=== PATIENT | male | born 1980 | race Caucasian/White ===

== ENCOUNTER 2019-05-20 14:36 | Emergency (ER) | payer OTHER, SELFPAY ==
--- NOTE | ~2019-05-20 | XR_ITS ---
XR shoulder RT min 2V 05/20/2019 15:33 Indication: Right shoulder pain Procedure: 5 views right shoulder Comparison: No prior studies for comparison. Findings: No fracture or traumatic malalignment. No significant soft tissue abnormality. No radiopaqu e foreign bodies. Impression: 1: No acute bone or joint abnormality. Reviewed, dictated and finalized at location B. EE MAKER Impression: 1: No acute bone or joint abnormality.
--- NOTE | ~2019-05-20 | XR_ITS ---
XR elbow RT min 3V 05/20/2019 15:33 INDICATION: Generalized elbow and shoulder pain. Limited range of motion. PROCEDURE: 4 views right elbow COMPARISON: No prior studies for comparison. FINDINGS: Fracture, dislocation or subluxation is not identified. No significant joint effusion. The soft tissues appear within normal limits. No foreign bodies are identified. IMPRESSION: 1: NO ACUTE BONE OR JOINT ABNORMALITY IDENTIFIED. Reviewed, dictated and finalized at location B. LIFE BIOLOGIST
[2019-05-20 14:39] VITALS: BP 132/84; PULSE 69; RESP 18; TEMP 36.7; O2SAT 96
--- NOTE | 2019-05-20 15:16 | ED.UPPEXIN ---
HPI - Extremity Injury (Upper) General Chief Complaint: Extremity Injury, Upper Stated Complaint: shoulder pain Time Seen by Provider: 05/20/19 14:50 Source: patient Mode of arrival: ambulatory Limitations: no limitations History of Present Illness HPI narrative: This is a 39 year old male that presents to the ER for right shoulder pain after an injury a week and a half ago. Reports he was at work and tripped over a broom falling onto his elbow. Reports since he has had pain in the right shoulder pain elbow. Worse with movement. Relieved with rest. He has been taking Tylenol with little relief. Denies hitting his head, loss of consciousness, other injuries, or numbness. Related Data Allergies Allergy/AdvReac Type Severity Reaction Status Date / Time ibuprofen Allergy Mild Verified 07/02/08 11:36 Review of Systems Review of Systems: Narrative: CONSTITUTIONAL: Denies fever CARDIOVASCULAR: Denies chest pain SKIN: Denies rash MUSCULOSKELETAL: Reports joint pain, and myalgia. All systems reviewed & are unremarkable except as noted in HPI and below PMFSH Past Medical History Medical History (Updated 05/20/19 @ 16:45 by Martha Osullivan PA-C) History of gastroesophageal reflux (GERD) Social History Social History (Updated 05/20/19 @ 15:20 by Martha Osullivan PA-C) Smoking status: Never smoker Gender identity (if verbalized by the patient): Male Exam Narrative: Exam Narrative: GENERAL: Well-appearing, well-nourished, and in no acute distress. HEAD: Normocephalic, atraumatic. EYES: EOMI. CHEST: Clear to auscultation. No respiratory distress. No wheezes rales or rhonchi HEART: Regular rate and rhythm. No murmur heard. Normal peripheral pulses. EXTREMITIES: Normal range of motion. No edema or obvious deformity. Pain with active ROM of the right shoulder above 90 degrees. Pain with Navarro Foster test SKIN: Warm, dry, no rash. NEURO: No focal deficits. Alert and oriented x3. PSYCH: Normal mood and affect Course Vital Signs Vital signs: Vital Signs Temperature 98.1 F 05/20/19 14:39 Pulse Rate 69 05/20/19 14:39 Respiratory Rate 18 05/20/19 14:39 Blood Pressure 132/84 05/20/19 14:39 Pulse Oximetry 96 05/20/19 14:39 Temperature 98.1 F 05/20/19 14:39 Pulse Rate 69 05/20/19 14:39 Respiratory Rate 18 05/20/19 14:39 Blood Pressure 132/84 05/20/19 14:39 Pulse Oximetry 96 05/20/19 14:39 MDM - Extremity Injury (Upper) MDM Narrative Medical decision making narrative: Patient presents the emergency department for right shoulder and elbow pain after a fall a week and a half ago. Right elbow and shoulder x-rays are without acute changes. Patient was given a sling for comfort. He was instructed to rest, ice and take [id number] pain medication as needed. He is to follow-up with orthopedics. Patient was given warnings to return to the ER Imaging Data Radiologist's impression: ITS Impressions Elbow X-Ray 05/20/19 15:38 IMPRESSION: 1: NO ACUTE BONE OR JOINT ABNORMALITY IDENTIFIED. Shoulder X-Ray 05/20/19 15:39 Impression: 1: No acute bone or joint abnormality. Critical Care Time Critical Care Time Critical Care Time: No Discharge Plan Discharge Clinical Impression: Acute pain of right shoulder Patient Disposition: Home, Self-Care Condition: Stable Instructions: Shoulder Sprain (ED) Additional Instructions: Return to the emergency department if you experience fever, redness and swelling of your arm, or any other symptoms that are concerning to you Rest. Ice the area. [id number] pain medication as needed Follow-up with your orthopedic doctor. You may also follow-up with our orthopedic doctor front services agent if needed Interventions: Discharge Disposition Last Done: 05/20/19 16:06 Follow-up/Referrals: PHYSICIAN,CHANNELER INSOLE [Primary Care Provider] - Kofi Baker MD [Physician] - 1 Week
== END 2019-05-20 17:11 | disposition home or self-care (01) ==
PROVIDERS: Emergency Provider Emergency Medicine
DX: M25.511 Pain in right shoulder (principal); K21.9 Gastro-esophageal reflux disease without esophagitis; W18.09XA Striking against other object with subsequent fall, initial encounter
CPT/HCPCS: 73030; 73080; 99284; A4565; A9270

== ENCOUNTER 2022-11-10 15:08 | Emergency (ER) | payer OTHER, SELFPAY ==
--- NOTE | ~2022-11-10 | US_ITS ---
EXAMINATION: US venous doppler [facility] DATE: 11/10/2022 16:39 INDICATION: Left lower limb pain and swelling TECHNIQUE: Mayo scale images without and with compression and Doppler images of the left lower extrem ity veins were obtained. COMPARISON: None FINDINGS: The left common femoral vein, profunda femoral vein, femoral vein, popliteal vein, peroneal trunk, posterior tibial veins, and greater saphenous vein are patent. IMPRESSION: 1. Patent left lower extremity veins. No evidence of deep venous thrombosis. Reviewed, dictated and finalized at location A.
[2022-11-10 15:45] VITALS: BP 152/97; PULSE 74; RESP 18; TEMP 36.2; O2SAT 100
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
== END 2022-11-10 17:32 | disposition home or self-care (01) ==
PROVIDERS: Emergency Provider Physician Assistant; PCP Emergency Medicine
DX: S79.922A Unspecified injury of left thigh, initial encounter (principal); K21.9 Gastro-esophageal reflux disease without esophagitis; V28.49XA Other motorcycle driver injured in noncollision transport accident in traffic accident, initial encounter
CPT/HCPCS: 93971; 99284